=== PATIENT | female | born 1960 | race Caucasian/White ===

== ENCOUNTER → 2017-02-28 | Outpatient (CLI) | payer OTHER ==
--- NOTE | 2017-02-28 12:14 | REPMRS ---
Patient History The patient states she had a clinical breast exam in 02/2017. Patient is postmenopausal. Family history of breast cancer in mother at age 62. Digital Woman Screen Mammo: February 28, 2017 - Exam #: [id number] Bilateral CC and MLO view(s) were taken. Technologist: Zohra Lee, Technologist Prior study comparison: February 15, 2016, digital woman screen mammo performed at [facility]. February 10, 2015, digital woman screen mammo performed at [facility]. FINDINGS: There are scattered fibroglandular densities. There has been no change in the appearance of the mammogram from the prior studies. There is a mild amount of residual fibroglandular tissue which is fairly symmetric. There is no interval development of dominant mass, architectural distortion, or clustered microcalcification suggestive of malignancy. ASSESSMENT: BI-RADS/ACR category 1 mammogram. Negative. Recommendation Routine screening mammogram in 1 year (for women over age 40). This mammogram was interpreted with the aid of an FDA-approved computer-aided dectection system. Electronically Signed By: Marcio Sánchez MD 02/28/17 6022
== END ==
LOC: M WHC 10:25
PROVIDERS: ATTEND Nurse Practitioner Women's Health
DX: Z12.31 Encounter for screening mammogram for malignant neoplasm of breast (principal)

== ENCOUNTER → 2017-02-28 | Outpatient (REF) | payer OTHER | LOC: M SFHCWAGY 11:10 | PROVIDERS: ATTEND Nurse Practitioner Women's Health | DX: Z12.4 Encounter for screening for malignant neoplasm of cervix (principal) ==

== ENCOUNTER 2018-02-20 09:05 | Day surgery (SDC) | payer OTHER ==
[2018-02-20] MEDS ORDERED: LIDOCAINE 1% MDV 20ML VIAL SQ (09:15)
[2018-02-20] MEDS ORDERED: fentaNYL 100 MCG/2 ML INJECTION (J3010) As Ordered (10:23)
[2018-02-20] MEDS ORDERED: MIDAZOLAM INJ 2 MG/2 ML VIAL (J2250) As Ordered (10:23)
[2018-02-20] MEDS ORDERED: LIDOCAINE 2% INJ 100 MG/5 ML SDV (FOR ANES.) As Ordered ×2 (10:24→10:26)
[2018-02-20] MEDS ORDERED: PROPOFOL 200 MG/20 ML VIAL As Ordered ×2 (10:24→10:26)
[2018-02-20 10:33] LABS: BEDSIDE GLUCOSE 132 MG/DL (70-105)
[2018-02-20] MEDS: LR 1,000 ML IV (10:35)
[2018-02-20] MEDS ORDERED: LR 1,000 ML IV ×2 (12:00→12:15)
[2018-02-20] MEDS ORDERED: ONDANSETRON 4MG/2ML VIAL (J2405) IV (12:00)
[2018-02-20] MEDS ORDERED: fentaNYL 100 MCG/2 ML INJECTION (J3010) IV (12:00)
[2018-02-20] MEDS ORDERED: PERCOCET 5MG/325MG TAB PO (12:00)
[2018-02-20] MEDS ORDERED: HYDROMORPHONE HCL 0.5 MG/ 0.5 ML SYRINGE (J1170 PER 1) IV (12:00)
[2018-02-20] MEDS ORDERED: IBUPROFEN 600 MG TAB PO (12:15)
== END 2018-02-20 15:10 | disposition home or self-care (01) ==
LOC: M SDC 09:05
DX: N95.0 Postmenopausal bleeding (principal); N84.8 Polyp of other parts of female genital tract; I10 Essential (primary) hypertension; E78.5 Hyperlipidemia, unspecified; E11.51 Type 2 diabetes mellitus with diabetic peripheral angiopathy without gangrene; E66.9 Obesity, unspecified; Z68.42 Body mass index [BMI] 45.0-49.9, adult; Z79.899 Other long term (current) drug therapy; Z79.82 Long term (current) use of aspirin; Z79.84 Long term (current) use of oral hypoglycemic drugs; Z78.0 Asymptomatic menopausal state
CPT/HCPCS: 58558

== ENCOUNTER → 2018-04-02 | Outpatient (REF) | payer OTHER | LOC: M SFHCWAGY 09:49 | DX: Z12.4 Encounter for screening for malignant neoplasm of cervix (principal) ==

== ENCOUNTER → 2018-04-02 | Outpatient (CLI) | payer OTHER | LOC: M WHC 08:57 | DX: Z12.31 Encounter for screening mammogram for malignant neoplasm of breast (principal) ==

== ENCOUNTER → 2019-04-03 | Outpatient (CLI) | payer BC ==
[~2019-04-03] MED LIST: ASPI81TA26 PO; CALCCHW4 PO; INVO300T PO; PRAV20TA2 PO; VALS80TA PO
--- NOTE | 2019-04-03 11:43 | REPMRS ---
Patient History The patient states she had a clinical breast exam in 03/2019. Patient is postmenopausal and is nulliparous. Family history of breast cancer at age 62 and endometrial cancer at age 50 or over in mother, breast cancer at age 59 in sister. Digital Woman Screen Mammo: April 03, 2019 - Exam #: [id number] Bilateral CC and MLO view(s) were taken. Technologist: Haley Jimenez Technologist Prior study comparison: April 02, 2018, bilateral digital woman screen mammo performed at [facility]. February 28, 2017, digital woman screen mammo performed at [facility]. February 15, 2016, digital woman screen mammo performed at [facility]. FINDINGS: There are scattered fibroglandular densities. There are stable somewhat hypertrophied bilateral axillary lymph nodes again noted unchanged from multiple prior studies. There has been no change in the appearance of the mammogram from the prior studies. There is a mild amount of scattered fibroglandular density which is fairly symmetric. There is no interval development of dominant mass, architectural distortion, or grouped microcalcification suggestive of malignancy. 3-D tomosynthesis shows no additional findings. Assessment: BI-RADS/ACR category 2 mammogram. Benign Findings. Recommendation Breast MRI of both breasts in 6 months. Routine screening mammogram of both breasts in 1 year (for women over age 40). This patient's Lifetime Breast Cancer Risk is estimated at 26.6 %. Annual screening Breast MRI scanniing is recommended for patient's whose lifetime risk assessment is over 20%. This mammogram was interpreted with the aid of an FDA-approved computer-aided dectection system. Electronically Signed By: Jimmy Santos MD 04/03/19 [id number]
== END ==
LOC: M WHC 09:21
PROVIDERS: ATTEND Nurse Practitioner Women's Health
DX: Z12.31 Encounter for screening mammogram for malignant neoplasm of breast (principal); Z80.3 Family history of malignant neoplasm of breast

== ENCOUNTER → 2019-09-18 | Outpatient (CLI) | payer BC ==
[2019-09-18 14:41] LABS: BLOOD UREA NITROGEN 15 MG/DL (7-18); CREATININE FOR GFR 0.59 MG/DL (0.55-1.30); GLOMERULAR FILTRATION RATE > 60.0 (>51)
== END ==
LOC: M PLALAB 09:31
PROVIDERS: ATTEND Nurse Practitioner Women's Health
DX: Z01.812 Encounter for preprocedural laboratory examination (principal)

== ENCOUNTER → 2019-10-09 | Outpatient (CLI) | payer BC | LOC: M RAD 09:50 | PROVIDERS: ATTEND Nurse Practitioner Women's Health | DX: Z53.9 Procedure and treatment not carried out, unspecified reason (principal) ==

== ENCOUNTER → 2020-04-04 | Outpatient (REF) | payer BC | LOC: M SFHCWAGY 13:00 | PROVIDERS: ATTEND Nurse Practitioner Women's Health | DX: Z12.4 Encounter for screening for malignant neoplasm of cervix (principal) ==

== ENCOUNTER → 2020-04-04 | Outpatient (CLI) | payer BC ==
--- NOTE | 2020-04-20 10:41 | REPMRS ---
Patient History The patient states she had a clinical breast exam in 03/2020. Patient is postmenopausal and is nulliparous. Family history of breast cancer at age 62 and endometrial cancer at age 50 or over in mother, breast cancer at age 59 in sister. No Hormone Replacement Therapy Digital Woman Screen Mammo: April 04, 2020 - Exam #: [id number] Bilateral CC and MLO view(s) were taken. Technologist: Zohra Lee, Technologist Prior study comparison: April 03, 2019, bilateral digital woman screen mammo performed at [facility]. April 02, 2018, bilateral digital woman screen mammo performed at [facility]. February 28, 2017, digital woman screen mammo performed at [facility]. FINDINGS: The breast tissue is almost entirely fat. The Volpara volumetric breast density category is: A. There is mild stable bilateral axillary lymphadnopathy, unchanged from multiple prior exams. There has been no change in the appearance of the mammogram from the prior studies. There is no interval development of dominant mass, architectural distortion, or grouped microcalcification typical of malignancy. 3-D tomosynthesis shows no additional findings. Assessment: BI-RADS/ACR category 2 mammogram. Benign Findings. Recommendation Breast MRI of both breasts in 6 months. Routine screening mammogram of both breasts in 1 year (for women over age 40). This patient's Lifetime Breast Cancer RIsk is estimated at 26.0 %. Annual screening Breast MRI scanniing is recommended for patient's whose lifetime risk assessment is over 20%. This mammogram was interpreted with the aid of an FDA-approved computer-aided dectection system. Electronically Signed By: Jimmy Santos MD 04/20/20 1403
== END ==
LOC: M WHC 07:45
PROVIDERS: ATTEND Nurse Practitioner Women's Health
DX: Z12.31 Encounter for screening mammogram for malignant neoplasm of breast (principal); R59.1 Generalized enlarged lymph nodes; Z78.0 Asymptomatic menopausal state; Z80.3 Family history of malignant neoplasm of breast

== ENCOUNTER → 2021-02-13 | Outpatient (CLI) | payer BC ==
--- NOTE | 2021-02-13 10:15 | REP ---
INDICATION: PAIN COMPARISON: None. TECHNIQUE: AP, lateral, bilateral oblique and sunrise views. FINDINGS: Generalized age-related changes are appreciated without overt osteoarthritic findings. No acute or healed injury. No evidence for effusion. IMPRESSION: Essentially age-related changes. <Electronically signed by Rohith Crowe > 02/13/21 1018
== END ==
LOC: M WUC 09:37
PROVIDERS: ATTEND Internal Medicine
DX: M25.562 Pain in left knee (principal)

== ENCOUNTER 2021-02-17 08:33 | Emergency (ER) | payer BC ==
[~2021-02-17] VITALS: Ht 157.5 cm; Wt 118.4 kg
[2021-02-17] MEDS ORDERED: HYDR12.55 (08:42)
[2021-02-17] MEDS ORDERED: LOSA100T50 (08:42)
[2021-02-17] MEDS ORDERED: GLIM4TAB5 (08:42)
[2021-02-17] MEDS ORDERED: ONDANSETRON 4MG/2ML VIAL IV ONE (09:15)
[2021-02-17 09:34] LABS: BASO % 0.2 % (0.0-1.0); EOS % 0.1 % (0.0-3.0); HEMATOCRIT 47.9 % (36.0-47.0); HEMOGLOBIN 15.6 g/dl (12.0-15.5); LYMPH # 3.7 10^3/uL (1.5-5.0); LYMPH % 27.3 % (24.0-44.0); MEAN CORPUSCULAR HGB CONC 32.6 g/dl (32.0-36.5); MONO # 0.7 10^3/uL (0.0-0.8); MONO % 5.4 % (2.0-8.0); NEUTROPHILS # 8.9 10^3/uL (1.5-8.5); NEUTROPHILS % 66.5 % (36.0-66.0); PLATELET COUNT, AUTOMATED 223 10^3/uL (150-450); RED BLOOD COUNT 5.57 10^6/uL (4.00-5.40); WHITE BLOOD COUNT 13.4 10^3/uL (4.0-10.0)
[2021-02-17 09:57] LABS: ALBUMIN 3.5 GM/DL (3.2-5.2); ALT/SGPT 34 U/L (12-78); BILIRUBIN,DIRECT 0.2 MG/DL (0.0-0.2); BILIRUBIN,TOTAL 0.8 MG/DL (0.2-1.0); BLOOD UREA NITROGEN 14 MG/DL (7-18); CALCIUM LEVEL 8.9 MG/DL (8.5-10.1); CARBON DIOXIDE LEVEL 25 MEQ/L (21-32); CHLORIDE LEVEL 101 MEQ/L (98-107); CK-MB VALUE MASS < 1.0 NG/ML (<3.6); CPK CREATINE PHOSPHOKINASE 61 U/L (26-192); CREATININE FOR GFR 0.56 MG/DL (0.55-1.30); GLOMERULAR FILTRATION RATE > 60.0 (>51); GLUCOSE, FASTING 140 MG/DL (70-100); LIPASE 55 U/L (73-393); MB/CK RELATIVE INDEX 1.64 (< OR =4); POTASSIUM SERUM 3.7 MEQ/L (3.5-5.1); SODIUM LEVEL 138 MEQ/L (136-145); TOTAL PROTEIN 7.1 GM/DL (6.4-8.2); TROPONIN I < 0.02 NG/ML (< 0.10)
[2021-02-17] MEDS: GASTROGRAFIN SOLUTION 30ML PO SCH ×2 (11:05→11:45)
[2021-02-17] MEDS ORDERED: ISOVUE-370 76% 100ML VIAL As Ordered ONE (12:30)
--- NOTE | 2021-02-17 13:17 | REP ---
INDICATION: diverticulitis. COMPARISON: None TECHNIQUE: Axial contrast-enhanced images from the lung bases to the pubic symphysis using oral and 100 cc Isovue 370 intravenous contrast material. Coronal and sagittal reformations obtained. This CT examination was performed using the following dose reduction techniques: Automated exposure control, adjustment of mA and/or kv according to the patient's size, and the use of iterative reconstruction technique. FINDINGS: Liver, spleen, pancreas, gallbladder, bilateral adrenal glands and kidneys are normal. The enteric system including stomach, small, and large bowel appears normal. No evidence for obstruction or acute inflammatory process. Normal terminal ileum and cecum are identified in the right lower quadrant. Few scattered sigmoid diverticula noted without acute diverticulitis. Pelvis demonstrates normal bladder and age-appropriate uterus/adnexa. No ascites. No free air. No intraperitoneal or retroperitoneal adenopathy. Abdominal aorta and vasculature appear normal. Musculoskeletal structures are intact and without acute osseous abnormality. IMPRESSION: No acute abdominopelvic pathology appreciated. Few scattered sigmoid diverticula without acute diverticulitis. <Electronically signed by Rohith Crowe > 02/17/21 [id number]
[2021-02-17] MEDS ORDERED: BACT800T5 PO (14:01)
[2021-02-17 14:13] VITALS: BP 166/80
--- NOTE | 2021-02-17 20:09 | ECGEPIP ---
[facility] - ED Test Date: 2021-02-17 Pat Name: FUNMI ERICKSON Department: Room: - Gender: Female Vp Training: DANICA : 1960 Requested By: Glenn Arellano Order Number: [id number] Reading MD: Glenn Monroe Measurements Intervals [place] Rate: 101 P: 11 [place]: 128 QRS: 19 QRSD: 86 T: 6 QT: 346 QTc: 448 Interpretive Statements Sinus tachycardia POOR R WAVE PROGRESSION SIMILAR TO 02/20/18 Electronically Signed on 02-17-2021 20:09:19 EDT by Glenn Monroe
== END 2021-02-17 14:18 | disposition home or self-care (01) ==
LOC: M ED 08:33
DX: A07.4 Cyclosporiasis (principal); R07.9 Chest pain, unspecified; R00.0 Tachycardia, unspecified; E11.9 Type 2 diabetes mellitus without complications; I10 Essential (primary) hypertension; E78.5 Hyperlipidemia, unspecified; E66.9 Obesity, unspecified; Z79.82 Long term (current) use of aspirin; Z79.899 Other long term (current) drug therapy
CPT/HCPCS: 74177; 80048; 80076; 82550; 82553; 83690; 84484; 85025; 87505; 93005; 96374; 99284; J2405; Q9963; Q9967

== ENCOUNTER → 2021-04-06 | Outpatient (REF) | payer BC ==
[~2021-04-06] MED LIST changes: +BACT800T5 PO; +GLIM4TAB5; +HYDR12.55; +LOSA100T50
== END ==
LOC: M SFHCWAGY 13:32
PROVIDERS: ATTEND Nurse Practitioner Women's Health
DX: Z12.4 Encounter for screening for malignant neoplasm of cervix (principal)

== ENCOUNTER → 2021-04-06 | Outpatient (CLI) | payer BC ==
--- NOTE | 2021-04-06 12:26 | REPMRS ---
Patient History The patient states she had a clinical breast exam in 2020. Family history of breast cancer at age 62 and endometrial cancer at age 50 or over in mother, breast cancer at age 59 in sister. No Hormone Replacement Therapy No breast complaints today Patient signed the MRS sheet 1st covid vaccine 11/14/20-left arm-Moderna 2nd covid vaccine 12/12/20-left arm CBE-04/08 T-C/25.3% Priors on PACS Patient Identification Verified Digital Woman Screen Mammo: April 06, 2021 - Exam #: [id number] Bilateral CC and MLO view(s) were taken. Technologist: Sneha Parham, Technologist Prior study comparison: April 04, 2020, bilateral digital woman screen mammo performed at [facility] [place]. April 03, 2019, bilateral digital woman screen mammo performed at [facility] [place]. FINDINGS: There are scattered fibroglandular densities. Screening. Digital screening (2D) mammography was performed bilaterally in the CC and MLO projections. Additionally, breast tomosynthesis (3D mammography) was performed bilaterally in the CC and MLO projections. Todays exam was compared to the prior exam/exams. By history, the patient has no complaints of a palpable breast abnormality or other significant breast complaints. The breasts are unchanged in size and shape. There are no aspen-soft tissue densities or spiculated masses. There is no internal architectural distortion. Once again, stable benign appearing calcifications are seen.There are no suspicious aspen-calcific clusters. Skin thickening or nipple retraction is not present. IMPRESSION: BI-RADS Category 2- Benign Findings. There is no evidence of malignant alteration of the breasts. Followup examination recommended in one year. The Volpara volumetric breast density category is B, there are scattered areas of fibroglandular densities. This mammogram was read with the assistance of [employer],an FDA approved computer aided detection system for mammography. The lifetime Tyrer-Cuzick score is 25.3 % Due to the density of the breasts or Tyrer Cuzick score of 20% or greater, MRI/whole breast screening ultrasound is warranted. Negative x-ray reports should not delay surgical consultation if a dominant or clinically suspicious mass is present. Not all breast cancers can be identified by mammography. Therefore, we recommend that you continue to perform regular breast self-examination and physical examination and then promptly contact your physician of any concerns or changes. Adenosis and dense breasts may obscure an underlying neoplasm. Assessment: BI-RADS/ACR category 2 mammogram. Benign Findings. Recommendation Routine screening mammogram of both breasts in 1 year. Electronically Signed By: Phu Love DO 04/06/21 [id number]
== END ==
LOC: M WHC 09:11
PROVIDERS: ATTEND Nurse Practitioner Women's Health
DX: Z12.31 Encounter for screening mammogram for malignant neoplasm of breast (principal)

== ENCOUNTER → 2021-05-25 | Outpatient (CLI) | payer BC ==
--- NOTE | 2021-05-25 15:47 | REP ---
INDICATION: PAIN COMPARISON: None. TECHNIQUE: AP, lateral, bilateral oblique and sunrise views. FINDINGS: Deming view demonstrates subtle sclerosis along the posterior patellar margin with minimal patellofemoral joint space narrowing. Mild cortical irregularity at the femoral condyles. No evidence for acute fracture or dislocation. No effusion. IMPRESSION: Minimal age-related degenerative changes. <Electronically signed by Rohith Crowe > 05/25/21 [id number]
== END ==
LOC: M WUC 15:16
PROVIDERS: ATTEND Family Medicine
DX: M25.561 Pain in right knee (principal)

== ENCOUNTER → 2022-05-28 | Outpatient (REF) | payer OTHER, BC ==
[~2022-05-28] MED LIST changes: +LOSA100T45; -LOSA100T50
== END ==
LOC: M SFHCWAGY 17:06
PROVIDERS: ATTEND Nurse Practitioner Family
DX: Z12.4 Encounter for screening for malignant neoplasm of cervix (principal); Z77.9 Other contact with and (suspected) exposures hazardous to health
CPT/HCPCS: 87624; G0123

== ENCOUNTER → 2022-05-28 | Outpatient (CLI) | payer BC, OTHER | LOC: M WHC 09:21 | PROVIDERS: ATTEND Nurse Practitioner Family | DX: Z12.31 Encounter for screening mammogram for malignant neoplasm of breast (principal) ==

== ENCOUNTER → 2023-05-09 | Outpatient (CLI) | payer OTHER, BC ==
[~2023-05-09] MED LIST changes: -LOSA100T45; +LOSA100T46
[2023-05-09 18:39] LABS: APPEARANCE, URINE CLEAR (CLEAR); BACTERIA, URINE AUTO NEGATIVE (NEGATIVE); BILIRUBIN, URINE AUTO NEGATIVE (NEGATIVE); BLOOD, URINE BLOOD NEGATIVE (NEGATIVE); COLOR, URINE YELLOW (YELLOW); GLUCOSE, URINE (UA) AUTO NEGATIVE (NEGATIVE); KETONE, URINE AUTO NEGATIVE (NEGATIVE); LEUKOCYTE ESTERASE, URINE AUTO NEGATIVE (NEGATIVE); MUCUS, URINE SMALL (NEGATIVE); NITRITE, URINE AUTO NEGATIVE (NEGATIVE); PROTEIN, URINE AUTO NEGATIVE (NEGATIVE); RBC, URINE AUTO 0 /HPF (0-3); SQUAMOUS EPITHELIAL CELL UR AU 3 /HPF (0-6); UROBILINOGEN, URINE AUTO 0.2 mg/dL (0.0-2.0); WBC, URINE AUTO 1 /HPF (0-3)
[2023-05-09 18:51] LABS: BASO % 0.3 % (0.0-1.0); EOS # 0.2 10^3/uL (0.0-0.5); EOS % 1.2 % (0.0-3.0); HEMATOCRIT 43.6 % (36.0-47.0); HEMOGLOBIN 13.7 g/dl (12.0-15.5); LYMPH # 8.4 10^3/uL (1.5-5.0); LYMPH % 57.6 % (24.0-44.0); MEAN CORPUSCULAR HEMOGLOBIN 27.8 pg (27.0-33.0); MEAN CORPUSCULAR HGB CONC 31.4 g/dl (32.0-36.5); MEAN CORPUSCULAR VOLUME 88.4 fl (80.0-96.0); MONO # 0.7 10^3/uL (0.0-0.8); MONO % 4.9 % (2.0-8.0); NEUTROPHILS # 5.2 10^3/uL (1.5-8.5); NEUTROPHILS % 35.8 % (36.0-66.0); PLATELET COUNT, AUTOMATED 258 10^3/uL (150-450); RED BLOOD COUNT 4.93 10^6/uL (4.00-5.40); WHITE BLOOD COUNT 14.6 10^3/uL (4.0-10.0)
[2023-05-09 18:58] LABS: ALBUMIN 3.7 G/DL (3.2-5.2); ALKALINE PHOSPHATASE 86 U/L (46-116); ALT/SGPT 39 U/L (7.0-40); AST/SGOT 22 U/L (<34); BILIRUBIN,TOTAL 0.6 MG/DL (0.3-1.2); BLOOD UREA NITROGEN 13 MG/DL (9-23); CALCIUM LEVEL 9.3 MG/DL (8.3-10.6); CARBON DIOXIDE LEVEL 32 MMOL/L (20-31); CHLORIDE LEVEL 102 MMOL/L (98-107); CHOLESTEROL LEVEL 171 MG/DL (<200); CHOLESTEROL RISK RATIO 3.26 (<5); CREATININE FOR GFR 0.51 MG/DL (0.55-1.30); GLOMERULAR FILTRATION RATE > 60.0 (>45); GLUCOSE, FASTING 177 MG/DL (74-106); HDL CHOLESTEROL 52.4 MG/DL (>40); LDL CHOLESTEROL 85.8 MG/DL (<100); NON-HDL-C 118.6 MG/DL; POTASSIUM SERUM 3.9 MMOL/L (3.5-5.1); SODIUM LEVEL 139 MMOL/L (136-145); TOTAL PROTEIN 6.8 G/DL (5.7-8.2); TRIGLYCERIDES LEVEL 164 MG/DL (<150)
[2023-05-09 19:35] LABS: HEMOGLOBIN A1c 8.2 % (4.0-6.0)
== END ==
LOC: M WUC 11:21
PROVIDERS: ATTEND Family Medicine
DX: E11.9 Type 2 diabetes mellitus without complications (principal); E78.5 Hyperlipidemia, unspecified; D72.829 Elevated white blood cell count, unspecified

== ENCOUNTER → 2023-06-14 | Outpatient (CLI) | payer OTHER ==
[~2023-06-14] MED LIST changes: -GLIM4TAB5; +GLIM4TAB5 PO; -HYDR12.55; +HYDR12.55 PO; -LOSA100T46; +LOSA100T46 PO; +SEMA1PEN2 SQ
== END ==
LOC: M WHC 10:52
PROVIDERS: ATTEND Nurse Practitioner Family
DX: Z12.31 Encounter for screening mammogram for malignant neoplasm of breast (principal); R59.9 Enlarged lymph nodes, unspecified

== ENCOUNTER 2023-12-25 15:24 | Day surgery (SDC) | payer OTHER ==
[~2023-12-25] VITALS: Ht 157.5 cm; Wt 119.3 kg
[2023-12-25] MEDS: LR 1,000 ML IV SCH ×2 (00:05→21:30)
[~2023-12-25 15:24] MED LIST changes: +JARD1TAB PO; +MELO15TA28 PO
[2023-12-25] MEDS ORDERED: ISOVUE-370 76% 100ML VIAL As Ordered ONE (16:11)
[2023-12-25 16:18] LABS: HEMATOCRIT 44.3 % (36.0-47.0); HEMOGLOBIN 14.6 g/dl (12.0-15.5); MEAN CORPUSCULAR HEMOGLOBIN 27.5 pg (27.0-33.0); MEAN CORPUSCULAR VOLUME 83.4 fl (80.0-96.0); PLATELET COUNT, AUTOMATED 242 10^3/uL (150-450); RED BLOOD COUNT 5.31 10^6/uL (4.00-5.40); WHITE BLOOD COUNT 19.7 10^3/uL (4.0-10.0)
[2023-12-25] MEDS: NS 1,000 ML IV ONE (16:31)
[2023-12-25] MEDS: PANTOPRAZOLE 40MG VIAL IV ONE (16:31)
[2023-12-25 16:33] LABS: INR 0.94; PARTIAL THROMBOPLASTIN TIME 27.5 SECONDS (24.8-34.2); PROTHROMBIN TIME 12.3 SECONDS (12.5-14.5)
[2023-12-25] MEDS: MAALOX 30 ML SUSP *UDC PO ONE (16:35)
[2023-12-25] MEDS: NITROGLYCERIN 2% OINT 1 GM *U/D* PKT TOP ONE (16:39)
[2023-12-25 16:51] LABS: CK-MB VALUE MASS 2.8 NG/ML (<3.6); LIPASE 30 U/L (12-53)
[2023-12-25 16:52] LABS: ATYPICAL LYMPH 14 % (0-5); LYMPHOCYTES 10 % (16-44); NEUTROPHILS 76 % (28-66); PLATELET ESTIMATE NORMAL (NORMAL)
[2023-12-25 16:53] LABS: ALBUMIN 3.6 G/DL (3.2-5.2); ALKALINE PHOSPHATASE 89 U/L (46-116); ALT/SGPT 32 U/L (7.0-40); AST/SGOT 18 U/L (<34); BILIRUBIN,DIRECT 0.2 MG/DL (<0.4); BILIRUBIN,TOTAL 0.6 MG/DL (0.3-1.2); BLOOD UREA NITROGEN 14 MG/DL (9-23); CARBON DIOXIDE LEVEL 31 MMOL/L (20-31); CHLORIDE LEVEL 100 MMOL/L (98-107); CREATININE FOR GFR 0.52 MG/DL (0.55-1.30); GLOMERULAR FILTRATION RATE > 60.0 (>45); GLUCOSE, FASTING 122 MG/DL (74-106); POTASSIUM SERUM 4.2 MMOL/L (3.5-5.1); SODIUM LEVEL 138 MMOL/L (136-145); TOTAL PROTEIN 6.8 G/DL (5.7-8.2)
[2023-12-25 16:55] LABS: FREE T4 1.11 NG/DL (0.89-1.76); THYROID STIMULATING HORMONE 0.719 uIU/ML (0.55-4.78)
[2023-12-25 17:00] LABS: CPK CREATINE PHOSPHOKINASE 134 U/L (34-145); MB/CK RELATIVE INDEX 2.08 (< OR =4)
[2023-12-25 18:07] LABS: CK-MB VALUE MASS 2.8 NG/ML (<3.6)
[2023-12-25 18:09] LABS: MB/CK RELATIVE INDEX 2.39 (< OR =4)
[2023-12-25] MEDS: ONDANSETRON 4MG 2ML VIAL IV ONE (18:20)
[2023-12-25] MEDS: MORPHINE 2 MG/ML 1ML VIAL IV ONE (18:30)
[2023-12-25] MEDS: PIPERACILLIN/TAZOBACTAM SOD 4.5 GM in D5W MINI-BAG PLUS 50 ML IV ONE (18:30)
[2023-12-25] MEDS ORDERED: LIDOCAINE 1% SDV 30ML VIAL As Ordered ONE (20:03)
[2023-12-25] MEDS ORDERED: fentaNYL 250 MCG/5 ML INJECTION As Ordered ONE (20:06)
[2023-12-25] MEDS ORDERED: MIDAZOLAM INJ 2MG/2ML VIAL As Ordered ONE (20:06)
[2023-12-25] MEDS ORDERED: propofoL 200 MG/20 ML VIAL As Ordered ONE (20:09)
[2023-12-25] MEDS ORDERED: LIDOCAINE 2% 100MG/5ML SDV (FOR ANES.) As Ordered ONE (20:10)
[2023-12-25] MEDS ORDERED: METOCLOPRAMIDE INJ 10MG/2ML VIAL As Ordered ONE (20:11)
[2023-12-25] MEDS ORDERED: ROCURONIUM BROMIDE 50MG/5ML VIAL As Ordered ONE (20:11)
[2023-12-25] MEDS ORDERED: ONDANSETRON 4MG 2ML VIAL As Ordered ONE (20:12)
[2023-12-25] MEDS ORDERED: KETOROLAC 60MG 2ML VIAL As Ordered ONE (20:12)
[2023-12-25] MEDS ORDERED: ACETAMINOPHEN 1000MG 100ML IV BAG As Ordered ONE (20:12)
[2023-12-25] MEDS ORDERED: PHENYLephrine 500MCG 5ML (100MCG/ML) SYRINGE As Ordered ONE (20:44)
[2023-12-25] MEDS ORDERED: CALCIUM CHLORIDE 10% 1 GM/10 ML SYR As Ordered ONE (20:45)
[2023-12-25] MEDS ORDERED: SUGAMMADEX SODIUM 500 MG/5 ML VIAL (BRIDION) As Ordered ONE (20:53)
[2023-12-25] MEDS ORDERED: CVS1CHW13 PO (21:26)
[2023-12-25] MEDS ORDERED: MULTCHW14 PO (21:26)
[2023-12-25] MEDS ORDERED: fentaNYL 100 MCG/2 ML INJECTION IV PRN (21:30)
[2023-12-25] MEDS ORDERED: oxyCODONE 5MG TAB PO PRN (21:30)
[2023-12-25] MEDS ORDERED: HYDROMORPHONE HCL 0.5 MG/ 0.5 ML SYRINGE IV PRN (21:30)
[2023-12-25] MEDS ORDERED: ONDANSETRON 4MG 2ML VIAL IV PRN ×2 (21:30→21:50)
[2023-12-25] MEDS ORDERED: HOME MED LIST COMPLETE! XX SCH (21:30)
[2023-12-25] MEDS ORDERED: GLUCOSE 4 GM CHEW PO PRN (21:50)
[2023-12-25] MEDS ORDERED: ACETAMINOPHEN TAB 650MG DOSE (2X325MG) PO PRN (21:50)
[2023-12-25] MEDS ORDERED: DEXTROSE 50% 50ML SYRINGE IV PRN (21:50)
[2023-12-25] MEDS ORDERED: GLUCAGON INJ 1MG VIAL SC PRN (21:50)
[2023-12-25] MEDS ORDERED: PERCOCET 5MG/325MG TAB PO PRN (21:50)
[2023-12-25 22:30] VITALS: BP 135/75; TEMP 97.5; O2SAT 94
[2023-12-25 23:00] VITALS: BP 115/60; TEMP 98.1; O2SAT 91
[2023-12-25] MEDS: PIPERACILLIN/TAZOBACTAM SOD 3.375 GM in D5W MINI-BAG PLUS 50 ML IV SCH (23:08)
[2023-12-25 23:30] VITALS: BP 115/59; TEMP 97.9; O2SAT 93
[2023-12-26] VITALS (9 sets, daily range): BP systolic 106–134; BP diastolic 59–72; TEMP 98.1–98.8; O2SAT 92–98
[2023-12-26] MEDS ORDERED: KETOROLAC 30 MG/ML 1ML VIAL IV PRN (04:00)
[2023-12-26 06:53] LABS: BASO % 0.2 % (0.0-1.0); EOS % 0.1 % (0.0-3.0); HEMATOCRIT 38.9 % (36.0-47.0); HEMOGLOBIN 12.9 g/dl (12.0-15.5); LYMPH # 4.1 10^3/uL (1.5-5.0); LYMPH % 23.5 % (24.0-44.0); MEAN CORPUSCULAR HEMOGLOBIN 27.9 pg (27.0-33.0); MEAN CORPUSCULAR HGB CONC 33.2 g/dl (32.0-36.5); MONO % 5.6 % (2.0-8.0); NEUTROPHILS # 12.2 10^3/uL (1.5-8.5); NEUTROPHILS % 70.3 % (36.0-66.0); PLATELET COUNT, AUTOMATED 210 10^3/uL (150-450); RED BLOOD COUNT 4.63 10^6/uL (4.00-5.40); WHITE BLOOD COUNT 17.3 10^3/uL (4.0-10.0)
[2023-12-26] MEDS: INSULIN LISPRO (NovoLOG) PER UNIT SC SCH (06:55)
[2023-12-26 07:12] LABS: BLOOD UREA NITROGEN 12 MG/DL (9-23); CALCIUM LEVEL 9.2 MG/DL (8.3-10.6); CARBON DIOXIDE LEVEL 28 MMOL/L (20-31); CHLORIDE LEVEL 102 MMOL/L (98-107); CREATININE FOR GFR 0.54 MG/DL (0.55-1.30); GLOMERULAR FILTRATION RATE > 60.0 (>45); GLUCOSE, FASTING 141 MG/DL (74-106); POTASSIUM SERUM 4.4 MMOL/L (3.5-5.1); SODIUM LEVEL 136 MMOL/L (136-145)
[2023-12-26] MEDS: PRAVASTATIN 20 MG TAB PO SCH (08:33)
[2023-12-26] MEDS: ASPIRIN 81MG ENTERIC TABLET PO SCH (08:33)
[2023-12-26] MEDS: GLIMEPIRIDE 2 MG TAB PO SCH (08:33)
[2023-12-26] MEDS: hydroCHLOROthiazide 12.5 MG CAPSULE PO SCH (08:33)
[2023-12-26] MEDS: LOSARTAN 50MG TABLET PO SCH (08:33)
[2023-12-26] MEDS: CALCIUM/VITAMIN D 500 MG TAB PO SCH (08:33)
[2023-12-26] MEDS: ENOXAPARIN 40MG/0.4ML SYRINGE (J1650 PER 10MG) SC SCH (08:33)
[2023-12-26] MEDS ORDERED: METR-265 PO (10:41)
[2023-12-26] MEDS ORDERED: AUGM500T34 PO (10:41)
== END 2023-12-26 11:55 | disposition home or self-care (01) ==
LOC: M ED 15:24 → M SDC 19:49 → M MSPAV 22:34 → M SDC 12-26 11:55
PROVIDERS: ATTEND Surgery
DX: K35.890 Other acute appendicitis without perforation or gangrene (principal); I10 Essential (primary) hypertension; E78.5 Hyperlipidemia, unspecified; E11.9 Type 2 diabetes mellitus without complications; E66.9 Obesity, unspecified; Z79.899 Other long term (current) drug therapy; Z79.82 Long term (current) use of aspirin; Z88.8 Allergy status to other drugs, medicaments and biological substances
CPT/HCPCS: 36415; 44970; 71275; 74177; 76705; 80047; 80048; 80076; 82550; 82553; 83605; 83690; 83880; 84439; 84443; 84484; 85025; 85610; 85730; 86140; 87040; 88304; 93005; 93041; 94760; 96365; 96366; 96372; 99285; C9113; J0131; J0665; J1650; J1815; J1885; J2250; J2371; J2405; J2543; J2765; J3010; Q9967

== ENCOUNTER → 2024-02-11 | Outpatient (CLI) | payer OTHER ==
[~2024-02-11] MED LIST changes: +AUGM500T34 PO; +CVS1CHW13 PO; +METR-265 PO; +MULTCHW14 PO
== END ==
LOC: M RAD 12:22
PROVIDERS: ATTEND Family Medicine
DX: N28.9 Disorder of kidney and ureter, unspecified (principal)

== ENCOUNTER → 2024-06-17 | Outpatient (REF) | payer OTHER ==
[~2024-06-17] MED LIST changes: +SEMA2PEN SQ
[2024-06-19 14:48] LABS: HPV APTIMA Not Detected (Not Detected)
== END ==
LOC: M SFHCWAGY 13:24
PROVIDERS: ATTEND Nurse Practitioner Family
DX: Z12.4 Encounter for screening for malignant neoplasm of cervix (principal)
CPT/HCPCS: 87624; G0123

== ENCOUNTER → 2024-06-23 | Outpatient (CLI) | payer OTHER | LOC: M WHC 13:32 | PROVIDERS: ATTEND Nurse Practitioner Family | DX: Z12.31 Encounter for screening mammogram for malignant neoplasm of breast (principal) ==

== ENCOUNTER → 2024-09-23 | Outpatient (CLI) | payer OTHER ==
[~2024-09-23] MED LIST changes: +ISOVUE-370 76% 100ML VIAL ONE
== END ==
LOC: M PLAIMG 07:53
PROVIDERS: ATTEND Urology
DX: C64.1 Malignant neoplasm of right kidney, except renal pelvis (principal); K76.0 Fatty (change of) liver, not elsewhere classified; R59.0 Localized enlarged lymph nodes
CPT/HCPCS: 74170; Q9967

== ENCOUNTER → 2025-03-17 | Outpatient (CLI) | payer OTHER ==
[~2025-03-17] MED LIST changes: -ISOVUE-370 76% 100ML VIAL ONE; -PRAV20TA2 PO; +PRAV20TA78 PO; +ROSU20TA86 PO
== END ==
LOC: M RAD 10:23
PROVIDERS: ATTEND Family Medicine
DX: E04.2 Nontoxic multinodular goiter (principal)

== ENCOUNTER → 2025-06-30 | Outpatient (CLI) | payer OTHER | LOC: M WHC 09:16 | PROVIDERS: ATTEND Nurse Practitioner Family | DX: Z12.31 Encounter for screening mammogram for malignant neoplasm of breast (principal) ==